=== PATIENT | female | born 1980 | race Caucasian/White ===

== ENCOUNTER 2022-07-04 15:25 | Outpatient (CLI) | payer OTHER, SELFPAY ==
[2022-07-04 18:06] LABS: Hepatitis B Surface Antigen* Negative (Negative)
[2022-07-04 18:23] LABS: Hepatitis C Virus Antibody* Negative (Negative)
[2022-07-04 18:55] LABS: HIV 1/2/P24 Combo Screen* Negative (Negative)
[2022-07-06 22:15] LABS: Rubella Antibody IgG 36.5 IU/mL
[2022-07-07 09:22] LABS: Rapid Plasma Reagin (RPR) Non Reactive (Non Reactive)
== END 2022-07-04 15:26 | disposition home or self-care (01) ==
PROVIDERS: PCP Physician Assistant; Visit Provider Physician Assistant
DX: Z34.92 Encounter for supervision of normal pregnancy, unspecified, second trimester (principal); Z3A.16 16 weeks gestation of pregnancy
CPT/HCPCS: 76815; 86592; 86703; 86762; 86787; 86803; 86850; 86900; 86901; 87086; 87340; 87491; 87591

== ENCOUNTER 2022-07-30 13:35 | Outpatient (CLI) | payer MEDICAID, SELFPAY | END 2022-07-30 13:36 | disposition home or self-care (01) | LOC: US 13:36 | PROVIDERS: PCP Physician Assistant; Visit Provider Pediatrics Neonatal-Perinatal Medicine | DX: O09.522 Supervision of elderly multigravida, second trimester (principal); Z3A.20 20 weeks gestation of pregnancy | CPT/HCPCS: 76811 ==

== ENCOUNTER 2022-10-03 10:46 | Outpatient (CLI) | payer MEDICAID, SELFPAY ==
[2022-10-04 18:24] LABS: Rapid Plasma Reagin (RPR) Non Reactive (Non Reactive)
== END 2022-10-03 10:47 | disposition home or self-care (01) ==
LOC: NFLDREF 10:48
PROVIDERS: Visit Provider Obstetrics & Gynecology
DX: O09.523 Supervision of elderly multigravida, third trimester (principal); Z3A.30 30 weeks gestation of pregnancy
CPT/HCPCS: 86592

== ENCOUNTER 2022-10-17 12:15 | Outpatient (CLI) | payer MEDICAID, SELFPAY ==
--- NOTE | 2022-10-17 12:15 | CRLHL7_ITS ---
For Patients: As a result of the Century Cures Act, medical imaging exams and procedure reports are released immediately into your electronic medical record. You may view this report before your referring provider. If you have questions, please contact your health care provider. INDICATION: Third trimester scan, evaluate growth. COMPARISON: 07/30/2022 TECHNIQUE: Real time waters scale imaging of the fetus was performed. FINDINGS: Sonographic imaging demonstrates a single living intrauterine gestation. Fetus demonstrates a regular cardiac rate of 165 beats per minute. Fetus has a vertex position. The placenta lies anteriorly. Amniotic fluid volume appears normal and there is a single deepest vertical pocket: 5.0 cm. The estimated weight is 2310gm which lies at the 96th %. On the prior OB ultrasound exam dated 07/30/2022 the estimated weight was at the 79th%. BPD 69th percentile. HC 60th percentile. AC greater than 97th percentile. FL 73rd percentile. The HC/AC ratio measures 0.98 range (0.95-1.11). IMPRESSION: Sonographic gestational age 33 weeks 3 days and sonographic due date of 12/02/2022. Sonographic age is 12 days ahead of the clinical age. Estimated weight 96th percentile. Abdominal circumference greater than 97th percentile. Dictated by Wellington Pryor MD @ 10/17/2022 1:24:17 PM (Electronically Signed)
== END 2022-10-17 12:16 | disposition home or self-care (01) ==
LOC: US 12:16
PROVIDERS: Visit Provider Obstetrics & Gynecology
DX: O09.523 Supervision of elderly multigravida, third trimester (principal); Z3A.33 33 weeks gestation of pregnancy
CPT/HCPCS: 76816

== ENCOUNTER 2022-11-14 14:00 | Outpatient (CLI) | payer MEDICAID, SELFPAY ==
[2022-11-14 14:22] VITALS: BP 131/83; PULSE 108
[2022-11-14 14:25] VITALS: RESP 16; TEMP 36.8
--- NOTE | 2022-11-14 17:56 | PC.OBNST ---
NST Note NST Note Start: 11/14/22 14:07 Freq: ONCE Status: Active Protocol: Document 11/14/22 17:53 JAVAN (Rec: 11/14/22 17:54 JRAngelito [id number]) NST Note 6 Para (# of births) 3 EDC 12/14/22 Gestational Age In Weeks & Days 35 Weeks & 5 Days Patient Presented with Complaint(s) of Contractions/cramping Reactive Yes Appropriate for Gestational Age Yes RN Hever Reina RN Date 11/14/22 Reactive Yes Appropriate for Gestational Age Yes REG Wilcox RN Date 11/14/22 OB NST charge Yes Complete NST Note via Write Note Yes The provider's electronic signature indicates the NST is reactive/appropriate for gestational age. *Note to provider: If an addendum is required, open the patient's chart and click on the note under the Nurse/Allied Health tab.
== END 2022-11-14 16:10 | disposition home or self-care (01) ==
LOC: OB OUT 14:00 → OB 14:01
PROVIDERS: Visit Provider Obstetrics & Gynecology
DX: O47.03 False labor before 37 completed weeks of gestation, third trimester (principal); Z3A.35 35 weeks gestation of pregnancy
CPT/HCPCS: 59025; 99213

== ENCOUNTER 2022-11-19 10:15 | Outpatient (CLI) | payer MEDICAID, SELFPAY ==
[2022-11-20 15:22] LABS: Strep B DNA Probe NEGATIVE (Negative)
[2022-11-20 16:12] LABS: Strep B Pen/Amox Allergy No
== END 2022-11-19 10:16 | disposition home or self-care (01) ==
LOC: NFLDREF 10:15
PROVIDERS: Visit Provider Obstetrics & Gynecology
DX: O09.529 Supervision of elderly multigravida, unspecified trimester (principal)
CPT/HCPCS: 87081; 87653

== ENCOUNTER 2022-12-08 05:35 | Inpatient (IN) | payer MEDICAID, SELFPAY ==
[2022-12-08] VITALS (26 sets, daily range): BP systolic 104–130; BP diastolic 54–86; PULSE 54–115; RESP 16; TEMP 36.7–36.8; O2SAT 97–100; BMI 27.8
[2022-12-08 06:24] LABS: Hemoglobin* 9.1 gm/dL (12.0-16.0)
[2022-12-08] MEDS: LACTATED RINGERS 1000 ML 1,000 ML 125 ML IV (06:30)
[2022-12-08] MEDS: LACTATED RINGERS 1000 ML 1,000 ML 1200 ML IV ×2 (06:40→08:11)
[2022-12-08 07:01] LABS: SARS PCR* Negative SARS-CoV-2 (Negative)
[2022-12-08 07:37] LABS: Basophils Absolute Auto 0.06 K/uL (0.00-0.30); Basophils Percent Auto 0.7 % (0.0-3.0); Eosinophils Absolute Auto 0.12 K/uL (0.00-0.50); Eosinophils Percent Auto 1.3 % (0.0-7.0); Hematocrit 30.2 % (33.0-51.0); Hemoglobin* 9.2 gm/dL (12.0-16.0); Immature Granulocytes Abs Auto 0.12 K/uL (0.00-0.30); Immature Granulocytes Pct Auto 1.3 %; Lymphocytes Absolute Auto 2.24 K/uL (0.90-2.90); Lymphocytes Percent Auto 24.5 % (20-44); Mean Corpuscular HGB Conc 31 gm/dL (32-36); Mean Corpuscular Hemoglobin 22 pg (26-34); Mean Corpuscular Volume 73 fL (80-100); Monocytes Percent Auto 8.5 % (0.0-11.0); Neutrophils Absolute Auto 5.81 K/uL (1.7-7.0); Neutrophils Percent Auto 63.7 % (42.0-72.0); Platelet Count* 254 K/uL (140-440); RDW Coefficient of Variation % 15.7 % (11.5-15.5); Red Blood Count 4.14 m/uL (4.00-5.20); White Blood Count* 9.13 K/uL (4.50-11.00)
[2022-12-08 07:39] LABS: Slide Review Reflex No
[2022-12-08] MEDS: CEFAZOLIN 2 GM INJ IVP (07:45)
--- NOTE | 2022-12-08 09:02 | P.OBPRC_ITS ---
Procedure Pre-op/Post-op diagnoses: Pre-Op/Post-Op Diagnoses Operation Date: 12/08/22 07:15 <No data on this case meets the specified criteria> Procedure Done: Global Procedure Details: Procedures Operation Date: 12/08/22 07:15 Actual Procedure Side Surgeon p Repeat Section, Bilateral Salpingectomy Daenne Toscano MD Estimated blood loss (mL): 231 Disposition: floor Anesthesia type: TAP block Complications: None. Narrative: PREOPERATIVE DIAGNOSES: 1. Intrauterine at 39 1/7 weeks gestation. 2. History of prior low transverse section x2, desiring repeat. 3. Undesired fertility. POSTOPERATIVE DIAGNOSES: 1. Intrauterine at 39 1/7 weeks gestation. 2. History of prior low transverse section x2, desiring repeat. 3. Undesired fertility. NAME OF PROCEDURE: Repeat low transverse section. Lysis of adhesions. Bilateral salpingectomies. SURGEON: Everton. ANESTHESIA: Spinal. COMPLICATIONS: None. ESTIMATED BLOOD LOSS: 231 mL. DRAINS: Simms to gravity. FINDINGS: Live-born male , cephalic presentation, loose nuchal cord x1, Apgars 8 and 9 at 1 and 5 minutes respectively. weight 4215 g (9 # 5 oz). Normal appearing uterus, tubes, and ovaries. Dense adhesions between fascia, rectus muscles, omentum, anterior peritoneum, lower uterine segment, bladder. PROCEDURE: After obtaining informed consent, the patient was taken to the operating room where spinal anesthesia was obtained and found to be adequate. She was prepared and draped in the normal sterile fashion in the dorsal supine position with a leftward tilt. A Pfannenstiel skin incision was made with a scalpel along the line of the patient's previous Pfannenstiel scar. This incision was carried down to the underlying layer of fascia with the Bovie. The fascia was incised in the midline and the incision extended laterally. The superior and inferior aspects of the fascial incision were grasped with Rosa M clamps, elevated and the underlying rectus muscles dissected off sharply and with electrocautery. This dissection took an increased amount of time given the dense adhesions. Omental adhesions to the rectus muscles were taken down with the Ligasure. The rectus muscles were then in the midline. The adhesions between the bladder and lower uterine segment were taken down sharply with Metzenbaum scissors. The Samuel O retractor was then placed into the incision. The lower uterine segment was then incised in a transverse fashion with the scalpel. The lower uterine segmant was quite thin. Upon entry into the uterus, clear amniotic fluid was noted. The uterine incision was extended laterally with blunt finger fractionation. The 's head was delivered atraumatically, followed by the remainder of the 's body. The nose and mouth were suctioned with the bulb suction. The cord was doubly clamped and cut, and the was handed off the field for evaluation. The placenta was delivered spontaneously with umbilical cord traction and fundal massage. The uterus was cleared of all clots and debris. The uterine incision was reapproximated in a running locking fashion with a 0 chromic suture. A 2nd layer of the same suture was used to imbricate in horizontal fashion. The uterus was then exteriorized. Both fallopian tubes were identified to their fimbrial ends. Attention was 1st turned to the left fallopian tube which was elevated in its midsection with a [place] clamp and excised using the Ligasure. Excellent hemostasis was visualized. Attention was then turned to the right fallopian tube, which was isolated and excised with the Ligasure in a similar fashion. The uterus was returned to the abdomen. The gutters were irrigated and suctioned. All instruments and retractors were removed. The anterior peritoneum was reapproximated in a running fashion with a 3-0 Vicryl suture. The subfascial tissues were carefully inspected and hemostasis assured. The fascia was reapproximated in a running fashion with a looped 0 Maxon suture. The subcutaneous tissues were copiously irrigated. Hemostasis was assured. The skin was closed in a subcuticular fashion with 4-0 Vicryl. LiquiBand and dressing were applied. The patient tolerated the procedure well. Sponge, lap, needle, and instrument counts were reported as correct x2. The patient was taken to the recovery room, awake, and in stable condition. She did receive 2 grams of IV Ancef preoperatively and 30 mg IV Toradol postoperatively. A TAP block was administered by anesthesia at the conclusion of the procedure.
--- NOTE | 2022-12-08 09:28 | W.ANESCHARGE ---
Anesthesia Charges Start Date/Time Anesthesia Start Date: 12/08/22 Anesthesia Start Time: 07:30 Stop Date/Time Anesthesia Stop Date: 12/08/22 Anesthesia Stop Time: 09:18
--- NOTE | 2022-12-08 09:55 | W.PM.NB ---
Nerve Block Nerve Block Time Seen by Provider: 09:10 Date Seen: 12/08/22 Type of block requested by surgeon for post-operative analgesia: TAP Side: bilateral Time out performed: Yes Verification of patient name: Yes Verification of date of : Yes Site marking: not applicable Name of person performing procedure: tabitha Continuous monitoring Was continuous monitoring of O2 sat, B/P, surveillance monitor, recorded every 15 minutes?: Yes Procedure Checklist: sterile prep, needles and gloves Ultrasound guided. Images saved: Yes Medications given in 5ml increments after negative aspiration: Marcaine %: 0.25 mL: 30 Needle gauge: 20 and Exparel mL: 10 Patient tolerated procedure well: Yes Block Charges Block Charge (with Pro Fee): TAP Bilateral Use of Ultrasound Machine for Block: Yes- US Guidance/pain block
[2022-12-08] MEDS: diphenhydrAMINE 50 MG/ML inj 12.5 MG IVP (11:19)
[2022-12-08] MEDS: KETOROLAC 30 MG/ML inj IVP ×2 (16:22→22:03)
[2022-12-09] MEDS: hydrOXYzine pamoate 25 MG CAPSULE 50 MG PO (00:15)
[2022-12-09 04:00] VITALS: RESP 15; O2SAT 95
[2022-12-09] MEDS: KETOROLAC 30 MG/ML inj IVP ×3 (04:15→16:08)
[2022-12-09 04:16] VITALS: BP 126/75; PULSE 91; RESP 15; TEMP 36.9; O2SAT 95
[2022-12-09 07:12] LABS: Hemoglobin* 8.7 gm/dL (12.0-16.0)
--- NOTE | 2022-12-09 07:34 | P.OBPN_ITS ---
OB - PN: A/P Plan day: 1 Plan: routine postop care Comments: Assessment/Plan G 6 P 3 status post uncomplicated repeat . 1. ?Continue route PP cares 2. ?. ?May see if desired 3. ?Anticipate discharge home tomorrow or the following day per pt preference 4. ?Acute anemia. ?Iron supplement ordered OB - PN: Subj Subjective Time Seen by Provider: 07:34 Date Seen: 12/09/22 Interval history: Oly is a 42 y.o. who was admitted to [facility] for a repeat . ?She had an uncomplicated . ? Patient comments: no complaints status: and doing well feeding status: exclusively Narrative: The patient feels well. ?The pain is well controlled with current medications. ?She has no new complaints. ?She is breast feeding and reports things are going well.? the patient has done well.? Vitals have been stable.? She has remained afebrile.? Has a good appetite, is tolerating a general diet. ?She is voiding without difficulty.? She is not yet passing gas and has not had a bowel movement.? She is ambulating and denies any dizziness.? Has Small amount of rubra lochia. OB - PN: Obj Exam Physical Exam: Vital signs: Temp Pulse Resp BP Pulse Ox O2 Del Method 98.4 F 91 15 126/75 95 Room Air 12/09/22 04:16 12/09/22 04:16 12/09/22 04:16 12/09/22 04:16 12/09/22 04:16 12/09/22 04:16 Narrative: VSS. Afebrile GENERAL APPEARANCE: ?normal affect, alert, no distress MOOD: ?appropriate HEENT: normocephalic, neck supple, full ROM CHEST: ?Symmetrical chest wall movement. ?Normal respiratory effort. ?Clear to auscultation HEART: ?regular rate and rhythm ABDOMEN: ?soft, non-tender. Uterine fundus is firm, 1 above Umbilicus, Midline and is appropriate for the stage of recovery. ?Bowel sounds present. EXTREMITIES: ?normal and no edema SKIN: warm, dry. Dressing on, clean/dry/intact. No signs of infection noted. Urinary Catheter Management: Urethral: Cath placed during this visit: yes, but has since been removed by the nurse Reason for continuing: not indwelling catheter Insertion date: 12/08/22 Insertion time: 07:40 Removal date: 12/08/22 Removal time: 18:40 OB - PN: Obj Data Labs Labs: Laboratory Results - last 24 hr 12/08/22 12/09/22 06:16 07:05 WBC 9.13 RBC 4.14 Hgb 9.2 L 8.7 L Hct 30.2 L MCV 73 L MCH 22 L MCHC 31 L RDW Coeff of Chela 15.7 H Plt Count 254 Neut % (Auto) 63.7 Lymph % (Auto) 24.5 Taliaferro % (Auto) 8.5 Eos % (Auto) 1.3 Baso % (Auto) 0.7 Neut # (Auto) 5.81 Lymph # (Auto) 2.24 Taliaferro # (Auto) 0.80 Eos # (Auto) 0.12 Baso # (Auto) 0.06
[2022-12-09 08:00] VITALS: RESP 18
[2022-12-09] MEDS: ACETAMINOPHEN 500 MG TABLET 1000 MG PO ×2 (08:51→15:07)
[2022-12-09] MEDS: OXYCODONE 5 MG TABLET PO ×2 (08:51→15:07)
[2022-12-09] MEDS: DOCUSATE SODIUM 100 MG CAPSULE PO (10:20)
[2022-12-09] MEDS: FERROUS SULFATE 325 MG TABLET PO (10:20)
--- NOTE | 2022-12-09 13:32 | PC.SOCIAL ---
Met with pt. to offer resources. Pt. had late care due to no transportation. Offered pt. 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 Pt. 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 Pt. did not feel she needed any additional resources for discharge and has adequate support.
[2022-12-09 15:08] VITALS: BP 121/82; PULSE 82; RESP 18; O2SAT 97
[2022-12-09 23:06] VITALS: BP 130/81; PULSE 82; RESP 20; O2SAT 97
[2022-12-10] MEDS: OXYCODONE 5 MG TABLET PO ×6 (02:05→23:44)
[2022-12-10] MEDS: ACETAMINOPHEN 500 MG TABLET 1000 MG PO ×3 (07:00→23:45)
[2022-12-10] MEDS: IBUPROFEN 600 MG TABLET PO ×3 (07:00→19:25)
[2022-12-10 07:33] VITALS: BP 142/83; PULSE 80; RESP 18; O2SAT 95
--- NOTE | 2022-12-10 07:46 | PM.OBPNCS1 ---
OB - PN: A/P Assessment and Plan (1) care and examination immediately after delivery: Status: Acute (2) Lactating mother: Status: Acute (3) Status post section: Status: Acute (4) Anemia complicating : Status: Acute Plan day: 1 Plan: routine postop care Comments: May see if desired. Plan for pain control today. Recommended scheduled medication and staying on top of pain. Discussed typical pain pattern immediate post section and the immediate days following. Encouraged comfort measures such as shower, activity, rest, hydration, and heat. Anticipate discharge home tomorrow, 12/11/2022, per her request. She has minimal support at home and 2 other children. OB - PN: Subj Subjective Date Seen: 12/10/22 Interval history: Oly is a 42 y.o. who was admitted to [facility] for a repeat . ?She had an uncomplicated . ? Narrative: Oly is a 42 y.o. who was admitted to [facility] for scheduled repeat section. ?She had an uncomplicated .?The patient feels well. ?The pain was well controlled with medications yesterday. Today she is reporting an increase in pain. She was given pain medication just before my rounding, she feels it has helped minimally so far. She feel the pain is intolerable and because of it she can't move.?She is breast feeding and reports things are going well.? the patient has done well.? Vitals have been stable.? She has remained afebrile.? Has a good appetite, is tolerating a general diet. ?She is voiding without difficulty.? She is passing gas and has not had a bowel movement.? She is ambulating and denies any dizziness.? Has Small amount of rubra lochia. Dressing still in place. She has minimal support at home and two other children, thus she prefers to stay and discharge tomorrow. OB - PN: Obj Exam Physical Exam: Vital signs: Temp Pulse Resp BP Pulse Ox O2 Del Method 98.4 F 80 18 142/83 H 95 Room Air 12/09/22 04:16 12/10/22 07:33 12/10/22 07:33 12/10/22 07:33 12/10/22 07:33 12/10/22 07:33 Narrative: GENERAL APPEARANCE:? normal affect, alert, no distress MOOD:? appropriate CHEST:? clear to auscultation HEART:? regular rate and rhythm ABDOMEN:? soft, non-tender the uterine fundus is At Umbilicus, Midline and is appropriate for the stage of recovery. PERINEUM:? no edema of the perineum EXTREMITIES:? normal and no edema Incision: Dressing in place, clean dry and intact; no redness around or discharge on dressing noted Urinary Catheter Management: Urethral: Cath placed during this visit: yes, but has since been removed by the nurse Reason for continuing: not indwelling catheter Insertion date: 12/08/22 Insertion time: 07:40 Removal date: 12/08/22 Removal time: 18:40
[2022-12-10] MEDS: FERROUS SULFATE 325 MG TABLET PO (07:50)
[2022-12-10] MEDS: DOCUSATE SODIUM 100 MG CAPSULE PO (07:50)
[2022-12-10 11:35] VITALS: BP 126/88
[2022-12-10 15:31] VITALS: BP 109/71; PULSE 91; RESP 22; TEMP 36.4; O2SAT 97
[2022-12-11 00:07] VITALS: BP 117/86; PULSE 80; RESP 18; TEMP 36.6; O2SAT 97
[2022-12-11] MEDS: IBUPROFEN 600 MG TABLET PO (01:43)
[2022-12-11] MEDS: OXYCODONE 5 MG TABLET PO ×2 (05:59→11:44)
[2022-12-11] MEDS: ACETAMINOPHEN 500 MG TABLET 1000 MG PO ×2 (05:59→11:48)
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
[2022-12-11 12:00] VITALS: RESP 16
== END 2022-12-11 13:00 | disposition home or self-care (01) | DRG 784 ==
PROVIDERS: Admitting Provider Obstetrics & Gynecology; Visit Provider Obstetrics & Gynecology
PROC: 10D00Z1 Extraction of Products of Conception, Low, Open Approach (ICD-10-PCS; CPT 59514; principal; 2022-12-08 07:15)
DX: O34.211 Maternal care for low transverse scar from previous cesarean delivery (principal); D62 Acute posthemorrhagic anemia; O90.81 Anemia of the puerperium; Z30.2 Encounter for sterilization; Z37.0 Single live birth; Z3A.39 39 weeks gestation of pregnancy
CPT/HCPCS: 01961; 36415; 76942; 85018; 85025; 86850; 86900; 86901; 87635; 88302; A9270; C9290; J0690; J1100; J1200; J1885; J2274; J2405; J2590; J3490; J7120

== ENCOUNTER 2022-12-20 12:25 | Emergency (ER) | payer MEDICAID, SELFPAY ==
[2022-12-20 12:39] VITALS: BP 111/75; PULSE 92; RESP 18; TEMP 36.6; O2SAT 98; BMI 23.7
--- NOTE | 2022-12-20 13:36 | ED_ITS ---
HPI - General Adult General Date Seen: 12/20/22 Chief complaint: Diarrhea Stated complaint: Nipple painful, upset stomach, pain after c-sect Time Seen by Provider: 12/20/22 12:47 Source: patient Mode of arrival: ambulatory Limitations: no limitations History of Present Illness HPI narrative: Patient is a 42-year-old female, who just delivered a healthy boy by with the primary indication of repeat . This was done on the 08 of December, she presents here for evaluation and also for evaluation of her son. She notes that she has increasing pain along her more laterally than medially, however she is moving around breast-feeding or a twisting and turning, she has not noticed any discharge, any bulging, redness, fevers chills or associated with this. She has also had 2 episodes of loose stools 1 yesterday and 1 today. Denies any abduct her abdominal pain associated with this, she also has a cracked left nipple, but denies any history of mastitis redness or swelling. She continues to breastfeed. Is wondering if she can get some Percocet tablets to use for pain, she received some after the surgery, I believe 20 according to the [employer]. She is also using Tylenol and ibuprofen. No recent use of antibiotics other than her does for preoperatively for the . No history of C diff in the past. Treatments prior to arrival: NSAID Related Data Home Medications Medication Instructions Recorded Confirmed No Known Home Medications 12/20/22 12/20/22 Allergies Allergy/AdvReac Type Severity Reaction Status Date / Time metoclopramide [From Reglan] Allergy Mild Verified 12/20/22 12:45 Review of Systems Status of ROS: Reports: 10 or more systems reviewed and unremarkable except as noted in History and below [facility] Medical History Anemia complicating ?O99.019 - Anemia complicating , unspecified trimester (ICD-10) Anxiety and depression ?F41.9 - Anxiety disorder, unspecified (ICD-10) ?F32.A - Depression, unspecified (ICD-10) History of meningioma of the brain ?Z86.011 - Personal history of benign neoplasm of the brain (ICD-10) Surgical History H/O section ?Z98.891 - History of uterine scar from previous surgery (ICD-10) History of brain surgery ?Z98.890 - Other specified postprocedural states (ICD-10) Status post section (12/08/22) ?Z98.891 - History of uterine scar from previous surgery (ICD-10) Family History Mother Lung cancer Father Alcohol dependence Family/Other Diabetes High blood pressure Social History Smoking Status: Never smoker How often do you have a drink containing alcohol: never AUDIT-C Alcohol total score: 0 Non-prescribed substance use: denies use Little interest or pleasure in doing things: not at all Feeling down, depressed, or hopeless: not at all service: No Exam Narrative: Exam Narrative: On examination she is in no apparent distress she is seen in room 3 with Tanisha the nurse present. Examination of her breasts bilaterally show normal engorged post delivery breast, I do not see any evidence of mastitis redness, there is no nipple cracking noted on the left, there is no masses, and there is no lymphadenopathy going up into the axilla noted. Her abdomen is otherwise soft there is no guarding, no organomegaly Pfannenstiel incision is noted on the lower abdomen, this is bolstered with some glue on the lateral left side. There is no evidence of any swelling redness noted, no evidence of any fluid collections I can see, and just a mild tenderness noted. Bowel sounds are normal. Const: Vital Signs, click to edit/add: Vital Signs - 24 hr 12/20/22 12:39 Temperature 97.8 F Pulse Rate [Right Pulse Oximeter] 92 Respiratory Rate 18 Blood Pressure [Ri ght Upper Arm] 111/75 Pulse Oximetry 98 Oxygen Delivery Me thod Room Air Documenting provider has reviewed patient's vital signs: yes Course Vital Signs Vital signs: Initial Vital Signs Temperature 97.8 F 12/20/22 12:39 Temperature Source Temporal Artery Scan 12/20/22 12:39 Pulse Rate 92 12/20/22 12:39 Pulse Rhythm Regular 12/20/22 12:39 Respiratory Rate 18 12/20/22 12:39 Blood Pressure 111/75 12/20/22 12:39 Blood Pressure Mean 87 12/20/22 12:39 Blood Pressure Position Sitting 12/20/22 12:39 Pulse Oximetry 98 12/20/22 12:39 Oxygen Delivery Method Room Air 12/20/22 12:39 Vital Signs Temperature 97.8 F 12/20/22 12:39 Pulse Rate 92 12/20/22 12:39 Respiratory Rate 18 12/20/22 12:39 Blood Pressure 111/75 12/20/22 12:39 Pulse Oximetry 98 12/20/22 12:39 Oxygen Delivery Method Room Air 12/20/22 12:39 Temperature 97.8 F 12/20/22 12:39 Pulse Rate 92 12/20/22 12:39 Respiratory Rate 18 12/20/22 12:39 Blood Pressure 111/75 12/20/22 12:39 Pulse Oximetry 98 12/20/22 12:39 Oxygen Delivery Method Room Air 12/20/22 12:39 Medical Decision Making MDM Narrative Medical decision making narrative: I considered infection here, postoperative, masses, hematoma, among other things I think part of the issue is the pain in the issues with her young son that she is having, 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 I reviewed the [employer], she has had only 2 prescriptions in the last 6 months for Percocet, none before. I think it would be reasonable to give her 10 tablets at this point I did warn her about the addiction potential associated with this, not use alcohol or drive. Medical Records Medical records reviewed: Yes I reviewed the patient's medical records Discharge Plan Discharge Clinical Impression: Diarrhea, Status post section, Postoperative abdominal pain Patient Disposition: Home, Self-Care Condition: Stable Instructions: Pain Management (ED), Opioid Safety (ED), Warm Compress or Soak (ED), Pain Management After Surgery (DC) Additional Instructions: Home rest use of medications as directed, I did give you a small supply of Percocet, this can be habit-forming, so please I would use this only at at bedti me, I would recommend follow-up with our OB GYNs however for a wound check, is not normal to have increasing pain after . I think increasing pain swelling redness would make me think of infection which I do not see rate now. I do not see any evidence of any mastitis or significant cracked nipples, I would persevere with breast-feeding at this point. Prescriptions: No Action No Known Home Medications Follow Up/Referrals: Provider,Not a Local [Primary Care Provider] - Stand Alone Forms: [employer] Info Instructions
== END 2022-12-20 13:40 | disposition home or self-care (01) ==
PROVIDERS: Emergency Provider Family Medicine
DX: R19.7 Diarrhea, unspecified (principal); G89.18 Other acute postprocedural pain
CPT/HCPCS: 99282; 99283